=== PATIENT | female | born 1940 | race Two or more races ===

== ENCOUNTER 2016-06-26 16:10 | Emergency (ER) | payer SELFPAY ==
[2016-06-26] MEDS: ACETAMINOPHEN 325 MG TAB PO ONE (17:30)
[2016-06-26 17:44] VITALS: BP 214/87
== END 2016-06-26 17:57 | disposition home or self-care (01) ==
LOC: ER 16:14
DX: S00.83XA Contusion of other part of head, initial encounter (principal); V49.59XA Passenger injured in collision with other motor vehicles in traffic accident, initial encounter; Y93.89 Activity, other specified; Y99.8 Other external cause status; Y92.410 Unspecified street and highway as the place of occurrence of the external cause
CPT/HCPCS: 70450; 70486